=== PATIENT | male | born 1965 | race Caucasian/White ===

== ENCOUNTER 2018-12-29 22:59 | Emergency (ER) | payer OTHER ==
[~2018-12-29] VITALS: Ht 180.3 cm; Wt 86.2 kg
--- NOTE | ~2018-12-29 | EKG ---
[place], [place] ELECTROCARDIOGRAM REPORT NAME: JOSIE VILLALTA UNIT #: [id number] ROOM: DOCTOR: EPIPHANY DRAFT REPORT BIRTHDATE: [birth year] [facility] Test Date: 2018-12-29 Test Time: 23:47:38 Pat Name: JOSIE VILLALTA Department: er Room: Gender: Curb [employer]: RESP : 1965 Requested By: ASHLEY DOMINGUEZ DNP Order Number: [id number] Reading MD: Scott Vaelntine MD Measurements Intervals [place] Rate: 88 P: 75 LA: 133 QRS: 89 QRSD: 95 T: 76 QT: 361 QTc: 437 Interpretive Statements Sinus rhythm Normal tracing Electronically Signed On 12-31-2018 9:08:13 PDT by Scott Valentine MD CM:EKGRPT:ELECTROCARDIOGRAM REPORT [id number] [facility] D[facility] RE[facility] ASHLEY DOMINGUEZ DNP
[~2018-12-29 22:59] MED LIST: ASPIRIN81 MG PO
[2018-12-30 00:19] LABS: BASO # 0.1 10*3/uL (0.0-0.1); BASO % 0.5 % (0.0-1.0); EOS # 0.2 10*3/uL (0.0-0.4); EOS % 1.2 % (1.0-4.0); HEMATOCRIT 48.8 % (42.0-52.0); LYMPH # 2.2 10*3/uL (1.3-4.4); LYMPH % 13.7 % (27.0-41.0); MEAN CELL VOLUME 89.9 fl (80.0-94.0); MEAN CORPUSCULAR HGB 29.5 pg (27.0-31.0); MEAN CORPUSCULAR HGB CONC 32.8 g/dl (33.0-37.0); MEAN PLATELET VOLUME 9.8 fl (9.6-12.3); MONO # 1.1 10*3/uL (0.1-1.0); MONO % 6.8 % (3.0-9.0); NEUT # 12.4 10*3/uL (2.3-7.9); NEUT % 77.4 % (47.0-73.0); PLATELET COUNT AUTOMATED 288 10*3/uL (130-400); RED BLOOD COUNT 5.43 10*6/uL (4.50-5.90); RED CELL DISTRI WIDTH 13.9 % (0-14.5); WHITE BLOOD COUNT 16.1 10*3/uL (4.8-10.8)
[2018-12-30 00:31] LABS: ACT PARTIAL THROMBO TIME 28.6 SECONDS (20.0-32.1)
[2018-12-30 00:36] LABS: ALBUMIN 4.1 gm/dl (3.1-4.5); ALKALINE PHOSPHATASE 90 U/L (45-117); BUN 25 mg/dl (7-24); CHLORIDE 102 mmol/L (98-107); CREATININE 1.23 mg/dL (0.70-1.30); LIPASE 113 U/L (73-393); POTASSIUM 3.9 mmol/L (3.5-5.1); SGOT/AST 17 IU/L (3-35); SGPT/ALT 23 U/L (12-78); SODIUM 136 mmol/L (136-145); TOTAL PROTEIN 7.7 gm/dL (6.4-8.2)
[2018-12-30 01:06] LABS: TROPONIN I < 0.015 ng/ml (<0.045)
[2018-12-30 01:22] LABS: BILIRUBIN 1+ (NEGATIVE); BLOOD NEGATIVE (NEGATIVE); CLARITY SL CLOUDY (CLEAR); COLOR YELLOW (YELLOW); GLUCOSE NEGATIVE (NEGATIVE); KETONE 1+ (NEGATIVE); LEUKO ESTERASE TRACE (NEGATIVE); NITRITE NEGATIVE (NEGATIVE); PH 5.5 (5.0-9.0); SPECIFIC GRAVITY >= 1.030 (1.005-1.030); UROBILINOGEN 0.2 E.U./dl (0.2-1.0)
[2018-12-30 01:31] LABS: BACTERIA 2+; MUCOUS 2+; RBC 0-2 rbc/hpf (0-2); WBC 16-20 wbc/hpf (0-5)
[2018-12-30] MEDS ORDERED: AVPAK AZITHROM250 MG PO (02:04)
[2018-12-30] MEDS ORDERED: CEPHALEXIN500 M1 PO (02:04)
[2018-12-30] MEDS ORDERED: PREDNISONE20 M1 PO (02:04)
[2018-12-30] MEDS ORDERED: PROVENTIL HFA6.7 GM INH (02:04)
== END 2018-12-30 02:20 | disposition left against medical advice (07) ==
LOC: ED 22:59
PROVIDERS: Nurse Practitioner Family
DX: A41.9 Sepsis, unspecified organism (principal); J18.9 Pneumonia, unspecified organism; L73.9 Follicular disorder, unspecified; R10.13 Epigastric pain; F17.200 Nicotine dependence, unspecified, uncomplicated